=== PATIENT | female | born 1985 | race Hispanic/Latino ===

== ENCOUNTER 2019-07-19 07:32 | Day surgery (SDC) | payer OTHER ==
[2019-07-19] MEDS ORDERED: NA CHLORIDE 0.9% 500 ML ONE (08:50)
[2019-07-19 09:56] VITALS: O2SAT 100
[2019-07-19 10:13] VITALS: BMI 31.4
[2019-07-19 14:54] LABS: Hematocrit 30.9 % (36.0-45.0)
[2019-07-19 15:19] VITALS: BP 116/66; TEMP 98.4
== END 2019-07-19 14:30 | disposition home or self-care (01) ==
LOC: DS 07:32
PROVIDERS: ATTEND Family Medicine
DX: D50.9 Iron deficiency anemia, unspecified (principal)
CPT/HCPCS: 36415; 86900; 86850; 86901; 85018; 85014; 36430; P9016 ×2; J7030

== ENCOUNTER 2019-08-09 07:47 | Day surgery (SDC) | payer OTHER ==
[2019-08-09] MEDS ORDERED: Ringers Lactate 0 ML IV ONE (08:07)
[2019-08-09] MEDS ORDERED: NA CHLORIDE 0.9% 500 ML ONE ×2 (08:20→10:21)
[2019-08-09 09:10] VITALS: BMI 31.4
[2019-08-09 13:40] LABS: Hematocrit 36.3 % (36.0-45.0)
[2019-08-09 14:51] VITALS: BP 109/66; TEMP 98; O2SAT 100
== END 2019-08-09 14:30 | disposition home or self-care (01) ==
LOC: DS 07:47
PROVIDERS: ATTEND Family Medicine
DX: D50.9 Iron deficiency anemia, unspecified (principal)
CPT/HCPCS: 36415; 86900; 86850; 86901; 85018; 85014; 86922 ×2; 36430; P9016 ×2; J7040 ×2; J7120

== ENCOUNTER 2020-07-22 09:32 | Day surgery (SDC) | payer OTHER ==
[2020-07-22 10:01] LABS: Specific Gravity >= 1.030 (1.005-1.030)
[2020-07-22] MEDS ORDERED: LIDOCAINE 2% MPF 5 ML VIAL ONE (10:02)
[2020-07-22] MEDS ORDERED: ONDANSETRON 4 MG/2 ML VIAL ONE (10:02)
[2020-07-22] MEDS ORDERED: MIDAZOLAM HCL 2 MG/2 ML INJ ONE (10:02)
[2020-07-22] MEDS ORDERED: propofoL 200 MG/20 ML VIAL IV ONE (10:02)
[2020-07-22] MEDS ORDERED: KETOROLAC 30 MG/ML INJ ONE (10:02)
[2020-07-22] MEDS ORDERED: FENTANYL CITR 100 MCG/2 ML ONE (10:02)
[2020-07-22] MEDS ORDERED: dexAMETHasone 4 MG/ML VIAL ONE (10:03)
[2020-07-22] MEDS ORDERED: Ringers Lactate 1,000 ML IV ONE ×2 (10:12→11:36)
[2020-07-22] MEDS: LIDOCAINE 1% W/EPI 1:100,000 MDV 20 ML VIAL ONE ×2 (10:20→11:24)
[2020-07-22] MEDS ORDERED: ACETAMINOPHEN 500 MG TAB ONE (10:26)
[2020-07-22] MEDS ORDERED: CELECOXIB 100 MG CAPSULE ONE (10:26)
[2020-07-22] MEDS ORDERED: SILVER NITRATE 1 APPL TOP ONE (10:29)
[2020-07-22 13:20] VITALS: TEMP 97.1; O2SAT 100
[2020-07-22 13:23] VITALS: BP 94/61
== END 2020-07-22 12:39 | disposition home or self-care (01) ==
LOC: OR 09:32
PROVIDERS: ATTEND Obstetrics & Gynecology
PROC: 0UC98ZZ Extirpation of Matter from Uterus, Via Natural or Artificial Opening Endoscopic (ICD-10-PCS; 2020-07-22)
PROC: 0UDB7ZX Extraction of Endometrium, Via Natural or Artificial Opening, Diagnostic (ICD-10-PCS; principal; 2020-07-22 11:30)
PROC: 0UJD8ZZ Inspection of Uterus and Cervix, Via Natural or Artificial Opening Endoscopic (ICD-10-PCS; 2020-07-22 11:30)
DX: T83.32XA Displacement of intrauterine contraceptive device, initial encounter (principal); N92.1 Excessive and frequent menstruation with irregular cycle; D25.9 Leiomyoma of uterus, unspecified; D50.9 Iron deficiency anemia, unspecified; B37.3 Candidiasis of vulva and vagina; Z30.432 Encounter for removal of intrauterine contraceptive device
CPT/HCPCS: 81025; 88300; 88305; 58558; 58562; J2704; J1100; J2250; J3010; J7120; J2405

== ENCOUNTER 2020-12-02 07:34 | Day surgery (SDC) | payer OTHER ==
[2020-11-26 14:11] LABS: Absolute Lymphocytes (CBC) 1.4 K/uL (0.7-4.9); Hematocrit 25.7 % (36.0-45.0); Lymphocytes % 19.6 % (15.3-44.8); RBC Red Blood Cell Count 3.89 M/uL (3.86-4.86)
[2020-11-26 14:35] LABS: Urine Appearance CLEAR (Clear); Urine Bilirubin NEGATIVE (Negative); Urine Blood NEGATIVE (Negative); Urine Color YELLOW (Yellow); Urine Glucose NEGATIVE (Negative); Urine Protein NEGATIVE (Negative); Urine Specific Gravity <=1.005 (1.005-1.030); Urine Urobilinogen 0.2 mg/dL (0.2-1.0)
[2020-11-26 14:45] LABS: Urine Microscopic Reflex NO UMIC
[2020-11-26 15:32] LABS: Blood Morphology Comment NOTED (NOT SEEN); Hypochromasia 1+; Platelet Estimate ADEQ; White Blood Cell Scan OK (OK)
[2020-12-01 14:31] LABS: SARS-COV-2 RT PCR NEGATIVE (NEGATIVE)
[2020-12-02 07:58] LABS: Specific Gravity 1.025 (1.005-1.030)
[2020-12-02 07:58] LABS: Hematocrit 25.5 % (36.0-45.0)
[2020-12-02] MEDS ORDERED: NA CHLORIDE 0.9% 250 ML ONE (09:03)
[2020-12-02] MEDS ORDERED: SCOPOLAMINE HYDROBROMIDE PATCH TD ONE (09:03)
[2020-12-02] MEDS ORDERED: Ringers Lactate 1,000 ML IV ONE ×2 (09:03→14:59)
[2020-12-02] MEDS: CEFAZOLIN/SWI 2gm 2 GM/20 ML SYR ONE ×4 (10:08→13:03)
[2020-12-02] MEDS: Ringers Lactate 1,000 ML IV ONE ×2 (11:18→13:03)
[2020-12-02] MEDS: NA CHLORIDE 0.9% 1,000 ML ONE (11:25)
[2020-12-02] MEDS ORDERED: propofoL 200 MG/20 ML VIAL IV ONE (11:26)
[2020-12-02] MEDS ORDERED: ONDANSETRON 4 MG/2 ML VIAL ONE (11:27)
[2020-12-02] MEDS ORDERED: FENTANYL CITR 250 MCG/5 ML ONE (11:27)
[2020-12-02] MEDS ORDERED: MIDAZOLAM HCL 2 MG/2 ML INJ ONE (11:27)
[2020-12-02] MEDS ORDERED: GLYCOPYRROLATE 0.2 MG/ML SYR ONE (11:27)
[2020-12-02] MEDS ORDERED: ROCURONIUM 50 MG/5 ML VIAL IV ONE ×2 (11:27→12:07)
[2020-12-02] MEDS ORDERED: LIDOCAINE 1% MPF 5 ML VIAL ONE (11:28)
[2020-12-02] MEDS: BUPIVACAINE 0.25% PF 30 ML VIAL ONE ×3 (11:28→12:09)
[2020-12-02] MEDS ORDERED: dexAMETHasone 10 MG/ML VIAL ONE (12:08)
[2020-12-02] MEDS ORDERED: Phenylephrine HCl 10 MG/ML 1 ML VIAL ONE (12:31)
[2020-12-02] MEDS ORDERED: IBUPROFEN 200 MG TAB PO PRN (14:02)
[2020-12-02] MEDS ORDERED: PROMETHAZINE INJ 25 MG/ML AMP IV PRN (14:02)
[2020-12-02] MEDS ORDERED: KETOROLAC 30 MG/ML INJ ONE (14:07)
--- NOTE | 2020-12-02 14:15 | P.BOP ---
Preoperative diagnosis: AUB-L/ REGGIE Postoperative diagnosis: same, severe bladder and bilateral steffany tubal and ovarian adhesions Primary procedure: TLH BS,EMMA from bladder(20min),bilateral ovariolysis Secondary procedure: cystoscopy Manager Services: Dorothy Dee Estimated blood loss: min Specimen: uterus tubes and ovarian adhesion from the right Findings: dense bilat tubo-ovarian adhesions(?old PID)/bladder adhesions from c/s Anesthesia: General Complications: None Transferred to: Recovery Room Condition: Good
[2020-12-02] MEDS: MEPERIDINE HCL 25 MG/ML SYR IM PRN ×2 (14:30→14:50)
[2020-12-02] MEDS ORDERED: Mastisol Adhesive Liq ONE (14:41)
[2020-12-02] MEDS ORDERED: MEPERIDINE HCL 25 MG/ML SYR ONE (14:54)
[2020-12-02 15:09] LABS: Absolute Lymphocytes (CBC) 0.7 K/uL (0.7-4.9); Basophils % 0.2 % (0-1.3); Hematocrit 29.6 % (36.0-45.0); Lymphocytes % 5.8 % (15.3-44.8); MPV 8.5 fL (7.6-11.3); RBC Red Blood Cell Count 4.28 M/uL (3.86-4.86)
[2020-12-02 15:45] VITALS: BP 106/65; TEMP 97.2; O2SAT 96
[2020-12-02] MEDS: HYDROCODONE/APAP 5/325 MG TAB PO PRN ×2 (16:25→17:35)
[2020-12-02 16:47] LABS: Anisocytosis 1+; Blood Morphology Comment NOTED (NOT SEEN); Hypochromasia 1+; Platelet Estimate ADEQ; White Blood Cell Scan OK (OK)
[2020-12-02] MEDS ORDERED: HYDROCODONE/APAP 5/325 MG TAB ONE (16:50)
--- NOTE | 2020-12-02 17:31 | OP ---
Date of Procedure: 12/02/2020 Surgeon: Jumana Esqueda MD Irrigation Teacher: Dorothy Hollins. Preoperative Diagnoses: Menorrhagia (AUB-L), iron deficiency anemia. Postoperative Diagnoses: Menorrhagia (AUB-L), iron deficiency anemia, severe bladder and bilateral p aratubal and ovarian adhesions. Procedures Performed: Total laparoscopic hysterectomy, bilateral salpingectomy, lysis of adhesions o n the bladder took over 20 minutes and bilateral ovariolysis, which involved the same time to clear t hem to start the hysterectomy. Secondary procedure is cystoscopy. Anesthesia: General endotracheal. Specimens: Uterus, bilateral tubes, and ovarian adhesions on the right. Complications: No complications. Drains: No drains. Condition: Stable. Findings: Dense bilateral tubo-ovarian adhesions probably as a consequence of old PID suspected or s alpingitis. Bladder adhesions from prior sections were suspected and it was severely adhere d to the anterior abdominal wall lower third of the pelvis starting at the area above the suprapubic incision and all the way down to the bladder peritoneum from the lateral aspects of the ro und ligament and anterior broad ligament to the bladder peritoneum. There were adhesions of the sigm oid colon to the broad ligament on the left lateral side. Ovaries completely unremarkable, tube slightly enlarged. No upper abdominal surfaces were abnormal a s visualized. The uterus was retrieved through the vagina. On cystoscopy, the visualization showed normal jets of urine from the ureteric orifices and they were unremarkable. Indications: The patient is a 35-year-old female, who presented with severe iron deficiency anemia, pain, and bleeding. She was evaluated with endometrial sampling and she had no atypia or malignancy. Ultrasound with small fibroids was noted. Discussed about all the different options including the IUD, Depot progesterone management, and ablation. This was too early for her and then a hysterectomy . The patient wanted to proceed with a hysterectomy. Her iron deficiency anemia has gotten worse ov er time and this was despite taking iron tablets. So, the patient was desiring permanent solution an d she was consented and brought to the OR. Description Of Procedure: After informed consent was verified, she was taken back to OR, placed in a supine fashion on the operating table. General anesthesia was given. She was placed in dorsal lith otomy position. Abdomen, vulva, vagina, and perineum were prepped and draped in a sterile fashion. A pelvic exam was performed and a large VCare was introduced into the uterus. A Crooks placed and att ached for retrograde filling. An infraumbilical incision was made with a scalpel 1 cm. Then, fascia incised and tagged with 0 Vicr yl sutures. Peritoneum entered sharply. S-retractors were placed and insufflated. Site of entry wa s checked and was unremarkable. Upper abdominal surfaces unremarkable. The patient placed in [place] and all the adhesions noted, could not even place a suprapubic port. So, 5 left lower quadra nt and 5 right lower quadrant ports were placed under direct vision. Then, under direct visualizatio n, the bladder was dissected away from the retroperitoneum from the uterus. The uterine adhesions we re taken down carefully without leaving any myometrium on the anterior abdominal wall. The prevesica l fat was visualized, but no evidence of any bladder in the area close, so the dissection was carried all the way down to the lower aspect of the right lateral anterior broad ligament and left lateral a nterior broad ligament. Then, the adhesions were all the way along the anterior broad ligament to th e sidewall and these were all taken down and after normal anatomy was restored, the uterus was separa sherita from the anterior abdominal wall. A 10 suprapubic port was placed and then procedure was started . The dissection was performed to take down the mesosalpinx at the area of the tubal ligation and once the mesosalpinx was taken down, then utero-ovarian ligament and round ligament taken down. Anterior broad ligament opened up all the way to the bladder flap and this was opened. Then, broad ligament t aken down to skeletonize the vessels. The posterior broad ligament opened up all the way to the left uterosacral. The vessels were isolated, both artery and vein clearly, then cauterized. On the opposite site, the ovary was left in place. Tube was removed partially. Then, utero-ovarian ligament, round ligament, anterior broad ligament and posterior broad ligament were all taken down. The broad ligament was skeletonized to expose the vessels. The anterior vaginal wall was cleaned up. The vesicovaginal space was entered with a monopolar hook blade and bladder peritoneum was dissecte d down. Then, vessels were taken down on the right side after isolating down with the help of the Li gaSure. Excellent hemostasis. Same thing on the left side as well. Then cardinal ligaments taken d own on both sides. Circumferential colpotomy with a monopolar hook blade was performed and the speci men was pulled out through the vagina. Thorough irrigation and suction were performed on the cuff and 2 angled 0 Vicryl sutures were placed on both corners, 1 on each side and then 2-0 V-Loc was used to close the rest of the incision in a tw o-layered fashion imbricating on the top. Then once the procedure was completed, thorough irrigation and suction were performed on the lateral sandoval. No evidence of any mechanical, electrical, thermal injury to the bladder. Trocars were removed under direct vision. Marcaine was injected at the fascia. All fascial incision s were closed with the help of 0 Vicryl, simple 0 Vicryl at the suprapubic site and tagged 0 Vicryl s utures tied to each other at the umbilical site. Then, dressed all skin incisions and closed with 3- 0 chromic and Steri-Strips placed. The vaginal bulb and Crooks were removed. Then, cystoscopy was performed with a 17-Kinyarwanda sheath, 30- degree lens, normal saline. Normal jets of urine from both ureteric orifices. No evidence of any tr auma to the bladder. The bladder was drained. The cystoscope was removed. Instrument, needle, and sponge counts were correct at the end of the case. The patient tolerated the procedure well. Urine output was 300 and EBL minimal. S he will follow up with me in 1 week. ELIZABETH/ELYSSA Voice ID: [id number] Report ID: [id number]
[2020-12-03] MEDS ORDERED: LEVOTHYROXINE SOD 0.125 MG TAB PO SCH (06:00)
[2020-12-03] MEDS ORDERED: FERROUS SULFATE 325 MG TAB PO SCH (09:00)
== END 2020-12-02 17:59 | disposition home or self-care (01) ==
LOC: OR 07:34
PROVIDERS: ATTEND Obstetrics & Gynecology
PROC: 0UT74ZZ Resection of Bilateral Fallopian Tubes, Percutaneous Endoscopic Approach (ICD-10-PCS; 2020-12-02)
PROC: 0DNW4ZZ Release Peritoneum, Percutaneous Endoscopic Approach (ICD-10-PCS; 2020-12-02)
PROC: 0UN24ZZ Release Bilateral Ovaries, Percutaneous Endoscopic Approach (ICD-10-PCS; 2020-12-02)
PROC: 0UT94ZZ Resection of Uterus, Percutaneous Endoscopic Approach (ICD-10-PCS; principal; 2020-12-02 10:30)
DX: N92.1 Excessive and frequent menstruation with irregular cycle (principal); D50.9 Iron deficiency anemia, unspecified; D25.9 Leiomyoma of uterus, unspecified; Z20.822 Contact with and (suspected) exposure to COVID-19
CPT/HCPCS: 85025 ×2; 36415 ×2; 86900; 86850; 81025; 86901; 88304; 88307; 85018; 85014; 81003; 0240U; 58571; 53899; 58660; J2704; J2370; J2250; J3010; J1100; J2175; J0690; P9016 ×2; J7120 ×3; J7050; J7030; J2405; 88305